=== PATIENT | male | born 1980 | race Caucasian/White ===

== ENCOUNTER 2016-07-14 09:45 | Emergency (ER) | payer MEDICAID ==
[~2016-07-14] VITALS: Ht 180.3 cm; Wt 79.4 kg
[2016-07-14 10:09] VITALS: BP 138/88
--- NOTE | 2016-07-14 10:11 | NUR ---
Patient ambulated to bed 01.
[2016-07-14] MEDS ORDERED: LEXAPRO20 MG PO (10:12)
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
--- NOTE | 2016-07-14 10:21 | NUR ---
Dr. Bowman evaluating patient at bedside.
[2016-07-14] MEDS ORDERED: HYDROcodone/APAP 5/325 MG 1 TAB TAB PO ONE (10:25)
[2016-07-14] MEDS ORDERED: METHOCARBAMOL 500 MG TAB PO SCH (10:25)
--- NOTE | 2016-07-14 10:33 | NUR ---
AAO, COOPERATIVE PT TAKEN TO XRAY BY ALEIDA KNAPP VIA WHEEL CHAIR
--- NOTE | 2016-07-14 11:06 | NUR ---
Patient back from XRAY via wheelchair per tech.
[2016-07-14 11:14] VITALS: BP 116/73
--- NOTE | 2016-07-14 11:15 | NUR ---
DR VILLANUEVA NOTIFIED OF PT C/O PAIN 02/28 POST MEDICATION
--- NOTE | 2016-07-14 11:17 | NUR ---
AAO ABLE TO AMBULATE TO RESTROOM
== END 2016-07-14 11:45 | disposition home or self-care (01) ==
LOC: MED 09:45
DX: S06.9X1A Unspecified intracranial injury with loss of consciousness of 30 minutes or less, initial encounter (principal); S29.012A Strain of muscle and tendon of back wall of thorax, initial encounter; W18.39XA Other fall on same level, initial encounter; Y93.51 Activity, roller skating (inline) and skateboarding; Y92.331 Roller skating rink as the place of occurrence of the external cause; Y99.8 Other external cause status

== ENCOUNTER 2016-12-13 15:14 | Emergency (ER) | payer MEDICAID ==
[~2016-12-13] VITALS: Ht 177.8 cm; Wt 70.4 kg
[~2016-12-13 15:14] MED LIST: ESCI20TA PO
[2016-12-13 15:22] VITALS: BP 133/90
[2016-12-13] MEDS ORDERED: IBUPROFEN 800 MG TAB PO ONE (16:15)
[2016-12-13 16:46] VITALS: BP 133/90
== END 2016-12-13 16:46 | disposition home or self-care (01) ==
LOC: MED 15:14
DX: L03.116 Cellulitis of left lower limb (principal); R03.0 Elevated blood-pressure reading, without diagnosis of hypertension
CPT/HCPCS: 73562; 90471; 90715; 99284

== ENCOUNTER 2017-03-01 13:28 | Emergency (ER) | payer OTHER, MEDICAID ==
[~2017-03-01] VITALS: Ht 177.8 cm; Wt 77.1 kg
[2017-03-01 13:47] VITALS: BP 152/87
--- NOTE | 2017-03-01 15:44 | NUR ---
Patient to bed 05.
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
--- NOTE | 2017-03-01 15:52 | NUR ---
ER MD DR. DOYLE EVALUATING PT AT BEDSIDE.
[2017-03-01] MEDS ORDERED: KETOROLAC 60 MG/2 ML VIAL IM ONE (16:00)
[2017-03-01 16:31] VITALS: BP 137/89
--- NOTE | 2017-03-01 16:31 | NUR ---
Patient discharged with v/s stable. Written and verbal after care instructions given and explained. Patient alert, oriented and verbalized understanding of instructions. Ambulatory with steady gait. All questions addressed prior to discharge. ID band removed. Patient advised to follow up with PMD. Rx of NORCO, KEFLEX, MOTRIN AND BACTRIM given. Patient educated on indication of medication including possible reaction and side effects. Opportunity to ask questions provided and answered.
== END 2017-03-01 16:31 | disposition home or self-care (01) ==
LOC: MED 13:28
DX: M70.52 Other bursitis of knee, left knee (principal); Y93.89 Activity, other specified; Z79.899 Other long term (current) drug therapy; F17.210 Nicotine dependence, cigarettes, uncomplicated
CPT/HCPCS: 96372; 99283; J1885